=== PATIENT | female | born 1965 | race Caucasian/White ===

== ENCOUNTER → 2017-03-29 | Outpatient (CLI) | payer OTHER ==
[~2017-03-29] MED LIST: GABAPENTIN600 MG PO; HYDROXYCHLOROQ200 M1 PO; LORAZEPAM0.5 MG PO; MOBIC7.5 MG PO; PROTONIX40 MG PO; TRIAMTERENE AND1 TA1 PO; ZOFRAN ODT4 MG SL
[2017-03-29 09:05] LABS: BASO # 0.1 10*3/uL (0.0-0.1); BASO % 0.9 % (0.0-1.0); EOS # 0.3 10*3/uL (0.0-0.4); EOS % 3.4 % (1.0-4.0); HEMATOCRIT 42.1 % (37.0-47.0); HEMOGLOBIN 14.2 g/dl (12.0-16.0); LYMPH # 2.1 10*3/uL (1.3-4.4); LYMPH % 28.3 % (27.0-41.0); MEAN CELL VOLUME 92.7 fl (81.0-99.0); MEAN CORPUSCULAR HGB 31.3 pg (27.0-31.0); MEAN CORPUSCULAR HGB CONC 33.7 g/dl (33.0-37.0); MEAN PLATELET VOLUME 9.6 fl (9.6-12.3); MONO # 0.5 10*3/uL (0.1-1.0); MONO % 6.6 % (3.0-9.0); NEUT # 4.5 10*3/uL (2.3-7.9); NEUT % 60.4 % (47.0-73.0); PLATELET COUNT AUTOMATED 233 10*3/uL (130-400); RED BLOOD COUNT 4.54 10*6/uL (4.10-5.10); WHITE BLOOD COUNT 7.5 10*3/uL (4.8-10.8)
[2017-03-29 10:09] LABS: ALBUMIN 3.9 gm/dl (3.1-4.5); ALKALINE PHOSPHATASE 90 U/L (45-117); BILIRUBIN, TOTAL 0.3 mg/dl (0.2-1.0); BUN 9 mg/dl (7-24); CARBON DIOXIDE 28 mmol/L (21-32); CHLORIDE 100 mmol/L (98-107); EST GLOM FILT AFRICAN AMERICAN > 60 ml/min; GLUCOSE 72 mg/dL (65-99); POTASSIUM 3.6 mmol/L (3.5-5.1); SGOT/AST 19 IU/L (3-35); SGPT/ALT 21 U/L (12-78); SODIUM 139 mmol/L (136-145); TOTAL PROTEIN 6.9 gm/dL (6.4-8.2)
[2017-03-29 10:17] LABS: THYROID STIM HORMONE (HS) 0.992 uIU/ml (0.358-4.75)
== END | disposition home or self-care (01) ==
LOC: LAB 07:47 → CT 08:00
PROVIDERS: Internal Medicine Gastroenterology
DX: N28.1 Cyst of kidney, acquired (principal); K76.89 Other specified diseases of liver; K42.9 Umbilical hernia without obstruction or gangrene; R10.0 Acute abdomen; Z90.710 Acquired absence of both cervix and uterus

== ENCOUNTER 2017-05-20 21:47 | Emergency (ER) | payer OTHER ==
[~2017-05-20] VITALS: Ht 162.5 cm; Wt 74.8 kg
[2017-05-20] MEDS ORDERED: HCTZ/TRIAMTEREN1 TA2 PO (22:02)
[2017-05-20] MEDS ORDERED: CYCLOBENZAPRINE10 MG PO (22:02)
[2017-05-20] MEDS ORDERED: ATIVAN0.5 MG PO (22:04)
[2017-05-20] MEDS ORDERED: MELOXICAM15 MG PO (22:05)
[2017-05-20 22:11] LABS: BASO # 0.1 10*3/uL (0.0-0.1); BASO % 0.8 % (0.0-1.0); EOS # 0.1 10*3/uL (0.0-0.4); EOS % 1.6 % (1.0-4.0); HEMATOCRIT 39.6 % (37.0-47.0); HEMOGLOBIN 13.6 g/dl (12.0-16.0); LYMPH % 40.3 % (27.0-41.0); MEAN CELL VOLUME 91.7 fl (81.0-99.0); MEAN CORPUSCULAR HGB 31.5 pg (27.0-31.0); MEAN CORPUSCULAR HGB CONC 34.3 g/dl (33.0-37.0); MEAN PLATELET VOLUME 9.6 fl (9.6-12.3); MONO # 0.4 10*3/uL (0.1-1.0); MONO % 4.8 % (3.0-9.0); NEUT # 3.9 10*3/uL (2.3-7.9); NEUT % 52.2 % (47.0-73.0); PLATELET COUNT AUTOMATED 199 10*3/uL (130-400); RED BLOOD COUNT 4.32 10*6/uL (4.10-5.10); RED CELL DISTRI WIDTH 11.9 % (0-14.5); WHITE BLOOD COUNT 7.5 10*3/uL (4.8-10.8)
[2017-05-20 22:21] LABS: PROTHROMBIN TIME 10.6 SECONDS (9.0-12.4)
[2017-05-20 22:27] LABS: ALKALINE PHOSPHATASE 85 U/L (45-117); BUN 8 mg/dl (7-24); C-REACTIVE PROTEIN 0.31 MG/DL (0-0.3); CARBON DIOXIDE 25 mmol/L (21-32); CHLORIDE 102 mmol/L (98-107); CKMB 0.9 ng/ml (0.5-3.6); CPK 116 U/L (26-192); EST GLOM FILT AFRICAN AMERICAN > 60 ml/min; GLUCOSE 106 mg/dL (65-99); MAGNESIUM 1.9 mg/dL (1.5-2.1); POTASSIUM 3.1 mmol/L (3.5-5.1); SGOT/AST 15 IU/L (3-35); SGPT/ALT 19 U/L (12-78); SODIUM 139 mmol/L (136-145)
[2017-05-20 22:31] LABS: BILIRUBIN, TOTAL 0.3 mg/dl (0.2-1.0)
[2017-05-20 22:33] LABS: TROPONIN I < 0.015 ng/ml (<0.045)
[2017-05-20 22:52] VITALS: BP 118/80
== END 2017-05-20 22:59 | disposition home or self-care (01) ==
LOC: ED 21:47
PROVIDERS: Emergency Medicine
DX: R07.89 Other chest pain (principal); F41.9 Anxiety disorder, unspecified; F17.200 Nicotine dependence, unspecified, uncomplicated; Z79.899 Other long term (current) drug therapy

== ENCOUNTER 2017-05-22 04:25 | Emergency (ER) | payer OTHER ==
[~2017-05-22] VITALS: Ht 162.5 cm; Wt 74.8 kg
[~2017-05-22 04:25] MED LIST changes: +ATIVAN0.5 MG PO; +CYCLOBENZAPRINE10 MG PO; +HCTZ/TRIAMTEREN1 TA2 PO; +MELOXICAM15 MG PO
[2017-05-22 04:30] VITALS: BP 154/94
[2017-05-22 05:29] LABS: BASO % 0.5 % (0.0-1.0); EOS # 0.1 10*3/uL (0.0-0.4); EOS % 0.8 % (1.0-4.0); HEMATOCRIT 41.2 % (37.0-47.0); HEMOGLOBIN 14.5 g/dl (12.0-16.0); LYMPH # 2.1 10*3/uL (1.3-4.4); LYMPH % 26.9 % (27.0-41.0); MEAN CELL VOLUME 89.6 fl (81.0-99.0); MEAN CORPUSCULAR HGB 31.5 pg (27.0-31.0); MEAN CORPUSCULAR HGB CONC 35.2 g/dl (33.0-37.0); MEAN PLATELET VOLUME 9.6 fl (9.6-12.3); MONO # 0.4 10*3/uL (0.1-1.0); MONO % 4.9 % (3.0-9.0); NEUT # 5.2 10*3/uL (2.3-7.9); NEUT % 66.6 % (47.0-73.0); PLATELET COUNT AUTOMATED 230 10*3/uL (130-400); RED CELL DISTRI WIDTH 11.9 % (0-14.5); WHITE BLOOD COUNT 7.8 10*3/uL (4.8-10.8)
[2017-05-22 05:46] LABS: ALBUMIN 4.3 gm/dl (3.1-4.5); ALKALINE PHOSPHATASE 93 U/L (45-117); BILIRUBIN, TOTAL 0.5 mg/dl (0.2-1.0); BUN 15 mg/dl (7-24); CARBON DIOXIDE 26 mmol/L (21-32); CHLORIDE 100 mmol/L (98-107); EST GLOM FILT AFRICAN AMERICAN > 60 ml/min; GLUCOSE 111 mg/dL (65-99); SGOT/AST 23 IU/L (3-35); SGPT/ALT 26 U/L (12-78); SODIUM 139 mmol/L (136-145); TOTAL PROTEIN 7.4 gm/dL (6.4-8.2)
== END 2017-05-22 06:29 | disposition home or self-care (01) ==
LOC: ED 04:25
PROVIDERS: Emergency Medicine
DX: R69 Illness, unspecified (principal); R11.0 Nausea; Z79.899 Other long term (current) drug therapy

== ENCOUNTER → 2018-01-02 | Outpatient (CLI) | payer BC ==
[2018-01-02 08:35] LABS: CEA 1.6 ng/mL; FREE T4 1.2 ng/dl (0.76-1.46)
[2018-01-03 08:10] LABS: AFP TUMOR MARKER 002253 1.2 ng/mL (0.0-8.3); FREE T3 010389 3.4 pg/mL (2.0-4.4); THYROID PEROXIDASE (TPO) AB 13 IU/mL (0-34)
[2018-01-03 17:11] LABS: CREATININE, RANDOM URINE 153.6 mg/dL (Not Estab.)
== END | disposition home or self-care (01) ==
LOC: LAB 07:36
DX: R10.84 Generalized abdominal pain (principal); R63.4 Abnormal weight loss; R23.2 Flushing; R11.0 Nausea; R06.2 Wheezing

== ENCOUNTER → 2018-01-13 | Outpatient (CLI) | payer BC | END | disposition home or self-care (01) | LOC: LAB 03:37 | DX: R06.2 Wheezing (principal); R11.0 Nausea; R10.84 Generalized abdominal pain; R23.2 Flushing; R63.4 Abnormal weight loss ==